=== PATIENT | male | born 1995 | race African-American/Black ===

== ENCOUNTER 2019-01-02 11:13 | Emergency (ER) | payer OTHER ==
[~2019-01-02] VITALS: Ht 175.3 cm; Wt 66.6 kg
[2019-01-02 11:16] VITALS: BP 103/67; TEMP 99.8
[2019-01-02 12:15] LABS: BASO % 0.1 % (0.0-2.0); EOS # 0.1 (0.0-0.7); EOS % 0.7 % (0-4.0); GRAN # 12.4 (1.4-6.5); GRAN % 87.2 % (42.2-75.2); HEMATOCRIT 41.6 % (42.0-52.0); HEMOGLOBIN 13.8 g/dl (13.5-18.0); LYMPH % 7.3 % (20.0-51.0); MEAN CELL VOLUME 87 fl (80.0-100.0); MEAN CORPUSCULAR HEMOGLOBIN 29 pg (27.0-31.0); MEAN CORPUSCULAR HGB CONC 33 g/dl (33.0-37.0); MEAN PLATELET VOLUME 9.5 fl (7.4-10.4); MONO # 0.6 (0.1-0.6); MONO % 4.4 % (1.7-9.3); PLATELET COUNT 315 K/mm3 (130-400); RED BLOOD COUNT 4.81 M/mm3 (4.20-5.60); REDCELL DISTRIBUTION WIDTH-CV 11.3 % (11.5-14.5)
[2019-01-02 12:24] LABS: ALBUMIN 4.3 gm/dL (3.5-5.0); BILIRUBIN,TOTAL 0.9 mg/dL (0.0-1.0); CALCIUM 9.6 mg/dL (8.4-10.2); CREATININE, serum 0.87 (0.66-1.25); POTASSIUM 4.2 mmol/L (3.4-5.0); TOTAL PROTEIN 8.5 gm/dL (6.4-8.2)
[2019-01-02] MEDS ORDERED: TOPICAL OINTMENT (12:30)
[2019-01-02] MEDS ORDERED: LEVAQUIN 5500 MG/TA1 PO (12:55)
[2019-01-02 15:40] VITALS: PULSE 74
== END 2019-01-02 15:44 | disposition home or self-care (01) ==
LOC: COL.ER 11:13
PROVIDERS: Physician Assistant
DX: J18.1 Lobar pneumonia, unspecified organism (principal); R51 Headache; Z86.79 Personal history of other diseases of the circulatory system; Z91.041 Radiographic dye allergy status
CPT/HCPCS: J1885; Q9967

== ENCOUNTER → 2019-01-02 | Outpatient (CLI) | payer OTHER ==
[~2019-01-02] MED LIST: LEVAQUIN 5500 MG/TA1 PO; TOPICAL OINTMENT
== END ==
LOC: COL.CARD 09:52
DX: R55 Syncope and collapse (principal)